=== PATIENT | male | born 1935 | race Caucasian/White ===

== ENCOUNTER 2017-05-16 13:23 | Inpatient (IN) | payer MEDICAID, OTHER ==
[2017-05-16] VITALS (15 sets, daily range): BP systolic 120–178; BP diastolic 56–96
[~2017-05-16] VITALS: Ht 172.7 cm; Wt 67.3 kg
[~2017-05-16 13:23] MED LIST: ASPI-1159 PO; ATEN-42 PO; IBUP-2029 PO; LISI-604 PO; NAPR-681 PO; SIMV20TA6 PO; TAMS0.4C31 PO
[2017-05-16] MEDS ORDERED: IOHEXOL-350 100 ML BOTTLE ONE (14:13)
[2017-05-16] MEDS ORDERED: SODIUM CHLORIDE 0.9% 10ML VIAL ONE (14:13)
[2017-05-16 16:37] LABS: BASOPHILS % 0.7 % (0.0-2.0); EOSINOPHILS % 1.8 % (0.0-5.0); HEMATOCRIT. 37.7 % (42.0-52.0); LYMPHOCYTES % 35.7 % (20.0-50.0); MEAN CORPUSCULAR HEMOGLOBIN 31.7 pg (28.0-32.0); MEAN PLATELET VOLUME 9.6 fl (7.4-10.4); MONOCYTES % 10.9 % (2.0-8.0); NEUTROPHILS % 50.9 % (40.0-76.0); PLATELET 185 x1000/uL (130-400)
[2017-05-16 16:42] LABS: CARBON DIOXIDE 23 mEq/L (21-32); CHLORIDE 110 mEq/L (98-107); ETHANOL BLOOD < 10 mg/dL
[2017-05-16 18:28] LABS: CLARITY URINE CLEAR (CLEAR); COLOR URINE YELLOW (YELLOW); GLUCOSE URINE NEGATIVE (NEGATIVE); KETONES URINE NEGATIVE (NEGATIVE); LEUKOCYTE ESTERASE URINE NEGATIVE (NEGATIVE); NITRITE URINE NEGATIVE (NEGATIVE); OCCULT BLOOD URINE NEGATIVE (NEGATIVE); PROTEIN URINE NEGATIVE (NEGATIVE); SPECIFIC GRAVITY URINE 1.013 (1.005-1.030); UROBILINOGEN URINE 0.2 E.U./dL (0.2-1.0)
[2017-05-16 18:39] LABS: *AMPHETAMINES SCREEN URINE NEGATIVE (NEGATIVE); *BARBITURATES SCREEN URINE NEGATIVE (NEGATIVE); *BENZODIAZEPINES SCREEN URINE NEGATIVE (NEGATIVE); *COCAINE SCREEN URINE NEGATIVE (NEGATIVE); CANNABINOID URINE SCREEN NEGATIVE (NEGATIVE); METHADONE URINE SCREEN NEGATIVE (NEGATIVE); OPIATES URINE SCREEN NEGATIVE (NEGATIVE); PHENCYCLIDINE URINE SCREEN NEGATIVE (NEGATIVE)
[2017-05-16] MEDS ORDERED: NICARDIPINE 50 MG in SODIUM CHLORIDE 0.9% 230 ML IV PRN ×2 (20:15→20:30)
[2017-05-16] MEDS ORDERED: HYDRALAZINE 20MG/ML VIAL IV ONE (20:15)
[2017-05-16] MEDS ORDERED: MORPHINE SULFATE 2 MG/ML CPJ (NOT FOR IM USE) IV PRN (21:47)
[2017-05-16] MEDS: DEXT 5%/LACTATED RINGERS 1,000 ML IV SCH (21:48)
[2017-05-16] MEDS ORDERED: PHENYTOIN SODIUM 100MG/2ML VIAL IV SCH (22:00)
[2017-05-16] MEDS ORDERED: NICARDIPINE 100 MG in SODIUM CHLORIDE 0.9% 60 ML IV PRN (23:00)
[2017-05-16] MEDS ORDERED: POTASSIUM CHLORIDE INJ 40 MEQ in DEXT 5% WATER 250 ML IV NR (23:00)
[2017-05-16] MEDS: PHENYTOIN SODIUM 100MG/2ML VIAL IV SCH (23:18)
[2017-05-16] MEDS ORDERED: ONDANSETRON HCL 4MG/2ML VIAL IV PRN (23:30)
[2017-05-17] VITALS (86 sets, daily range): BP systolic 88–150; BP diastolic 28–101
[2017-05-17 06:35] LABS: PROTHROMBIN TIME 10.9 sec (9.4-11.6)
[2017-05-17] MEDS: PHENYTOIN SODIUM 100MG/2ML VIAL IV SCH ×3 (06:38→21:13)
[2017-05-17 06:50] LABS: HEMATOCRIT 39.6 % (42.0-52.0); HEMOGLOBIN 13.9 g/dL (14.0-18.0); MEAN CORPUSCULAR HEMOGLOBIN 31.9 pg (28.0-32.0); MEAN CORPUSCULAR VOLUME 91.3 fL (80.0-94.0); PLATELET 194 x1000/uL (130-400); RED BLOOD CELL COUNT 4.34 mill/uL (4.7-6.1); RED CELL DISTRIBUTION WIDTH 13.9 % (11.6-14.6)
[2017-05-17 07:14] LABS: CARBON DIOXIDE 24 mEq/L (21-32); CHLORIDE 109 mEq/L (98-107)
[2017-05-17] MEDS ORDERED: FOLI-43 PO (11:53)
[2017-05-17] MEDS ORDERED: CYAN10009 PO (11:53)
[2017-05-17] MEDS: PANTOPRAZOLE SODIUM 40 MG/VIAL IV SCH (11:55)
[2017-05-17] MEDS: DEXT 5%/LACTATED RINGERS 1,000 ML IV SCH (20:09)
[2017-05-18] VITALS (46 sets, daily range): BP systolic 93–158; BP diastolic 50–94
[2017-05-18] MEDS: PHENYTOIN SODIUM 100MG/2ML VIAL IV SCH (05:22)
[2017-05-18] MEDS: PANTOPRAZOLE SODIUM 40 MG/VIAL IV SCH (08:35)
[2017-05-18] MEDS ORDERED: GADOBENATE DIMEGLUMINE 529 MG/ML 10ML IV ONE (11:18)
[2017-05-18] MEDS ORDERED: PHENYTOIN SODIUM EXTENDED 100MG CAPSULE PO SCH (14:00)
== END 2017-05-18 17:25 | disposition home or self-care (01) | DRG 55 ==
LOC: ER 13:23 → MICUSO 18:29 → EDBEDREQSVC 18:54 → EDBEDREQ 18:54 → ENRESERV 19:11 → MICUNO 21:29
PROVIDERS: ADMIT Internal Medicine Nephrology; ATTEND Internal Medicine Nephrology
DX: S06.5X9A Traumatic subdural hemorrhage with loss of consciousness of unspecified duration, initial encounter (principal); E46 Unspecified protein-calorie malnutrition; I10 Essential (primary) hypertension; G90.8 Other disorders of autonomic nervous system; E87.6 Hypokalemia; D35.2 Benign neoplasm of pituitary gland; I25.10 Atherosclerotic heart disease of native coronary artery without angina pectoris; D32.9 Benign neoplasm of meninges, unspecified; Z68.22 Body mass index [BMI] 22.0-22.9, adult; E66.9 Obesity, unspecified; Z79.82 Long term (current) use of aspirin; Y92.411 Interstate highway as the place of occurrence of the external cause; Z79.899 Other long term (current) drug therapy; Z90.49 Acquired absence of other specified parts of digestive tract; Y93.89 Activity, other specified; Y92.89 Other specified places as the place of occurrence of the external cause; Y99.8 Other external cause status
CPT/HCPCS: 36415; 70450; 70496; 70553; 72125; 80048; 80053; 80305; 81003; 85025; 85027; 85610; 93005; 96374; 99291; A4216; A9577; C9113; G0482; J0360; J1165; J3480; J3490; J7050; J7060; J7121; Q9967